=== PATIENT | male | born 1975 | race Caucasian/White ===

== ENCOUNTER 2018-11-18 13:02 | Emergency (ER) | payer OTHER ==
[~2018-11-18] VITALS: Ht 165.1 cm; Wt 71.3 kg
[2018-11-18 13:12] VITALS: Ht 165.1 cm; Wt 71.3 kg
[2018-11-18 16:18] VITALS: BP 140/95
== END 2018-11-18 16:18 | disposition home or self-care (01) ==
LOC: ED 13:02
DX: B34.9 Viral infection, unspecified (principal); K21.9 Gastro-esophageal reflux disease without esophagitis; Z88.0 Allergy status to penicillin

== ENCOUNTER 2019-12-06 08:39 | Emergency (ER) | payer OTHER ==
[~2019-12-06] VITALS: Ht 165.1 cm; Wt 68.0 kg
[2019-12-06] MEDS ORDERED: PROTONIX TR40 M1 PO (08:45)
[2019-12-06] MEDS ORDERED: ATORVASTATIN CA40 M1 PO (08:46)
[2019-12-06] MEDS ORDERED: BIKTARVY 50-201 EACH PO (08:46)
[2019-12-06] MEDS ORDERED: LORATADINE10 M3 PO (08:46)
[2019-12-06] MEDS ORDERED: MICROZIDE12.5 MG PO (08:46)
[2019-12-06 09:56] LABS: BASOPHIL % 0.3 % (0-2); PLATELET COUNT 212 x10^3mcL (130-400); RED CELL DISTRIBUTION WIDTH 13.5 % (11.5-14.5)
[2019-12-06 10:11] LABS: CALCIUM 9.5 mg/dL (8.5-10.1); CARBON DIOXIDE 29.9 mmol/L (21-32); CHLORIDE SERUM 101 mmol/L (98-107); GFR1 > 60 mL/min; POTASSIUM SERUM 3.6 mmol/L (3.5-5.1); SODIUM SERUM 139 mmol/L (136-145)
[2019-12-06 10:15] LABS: ALBUMIN 4.3 g/dL (3.4-5.0); ALKALINE PHOSPHATASE 111 U/L (46-116); ALT/SGPT 41 U/L (16-63); AST/SGOT 15 U/L (15-37); BILIRUBIN TOTAL 0.52 mg/dL (0.20-1.00); MAGNESIUM 1.9 mg/dL (1.8-2.4)
[2019-12-06 10:23] LABS: TOTAL PROTEIN, SERUM 8.5 g/dL (6.4-8.2)
[2019-12-06 10:45] LABS: GLUCOSE SERUM 119 mg/dL (74-106)
[2019-12-06 11:25] VITALS: BP 125/87
== END 2019-12-06 11:25 | disposition home or self-care (01) ==
LOC: ED 08:39
PROVIDERS: Emergency Medicine
DX: B34.9 Viral infection, unspecified (principal); I10 Essential (primary) hypertension; Z88.0 Allergy status to penicillin
CPT/HCPCS: 36415; 87804; Q0092